=== PATIENT | female | born 1970 | race Caucasian/White ===

== ENCOUNTER → 2019-05-28 | Outpatient (CLI) | payer BC ==
--- NOTE | 2019-05-28 13:19 | MM ---
Reason for exam: screening (asymptomatic). Baseline mammogram. History: Took hormonal contraceptives beginning at age 15. Physical Findings: Nurse did not find any significant physical abnormalities on exam. MG Screening Mammo w CAD Bilateral CC and MLO view(s) were taken. The breast tissue is heterogeneously dense. This may lower the sensitivity of mammography. No significant findings. These results were verbally communicated with the patient and result sheet given to the patient on 05/28/19. ASSESSMENT: Benign, BI-RAD 2 RECOMMENDATION: Routine screening mammogram of both breasts in 1 year.
== END | disposition home or self-care (01) ==
LOC: RADMAMWWP 11:17
PROVIDERS: ATTEND Family Medicine
DX: Z12.31 Encounter for screening mammogram for malignant neoplasm of breast (principal)
CPT/HCPCS: 77067

== ENCOUNTER → 2019-06-04 | Outpatient (CLI) | payer BC ==
--- NOTE | 2019-06-05 04:09 | US ---
EXAMINATION TYPE: US pelvis complete transvag DATE OF EXAM: 06/04/2019 COMPARISON: NONE CLINICAL HISTORY: 48-year-old female N92.6 IRREG MENSTRUATION. Irregular cycles for 1 year. Tubal lig ation TECHNIQUE: Transabdominal sonographic images of the pelvis were acquired. Transvaginal sonographic images were medically necessary to better assess the following anatomy: endometrium and right ovary Date of LMP: 05/06/19 FINDINGS: EXAM MEASUREMENTS: Uterus: 10.2 x 5.6 x 6.6 cm Endometrial Stripe: 2.0 cm Right Ovary: unable to visualize Left Ovary: 3.2 x 1.9 x 2.1 cm 1. Uterus: Anteverted 2. Endometrium: thickened with 2 rounded hyperechoic areas noted = 1.1 x 1.0 x 1.2cm and 0.9 x 0.8 x 1.1cm along the fundal endometrium. 3. Right Ovary: Obscured by overlying bowel gas 4. Left Ovary: hypoechoic area = 1.2 x 1.0 x 1.1cm, dominant follicle = 1.3cm 5. Bilateral Adnexa: appears wnl 6. Posterior cul-de-sac: wnl IMPRESSION: 1. Excessive endometrial stripe thickening up to 2.0 cm. Rounded echogenic structures measuring 1.2 c m and 1.1 cm are seen along the fundal endometrium. Endometrial polyps and endometrial carcinoma are differential considerations. 2. A 1.2 cm hypoechoic round lesion in the left ovary, suspected hemorrhagic cyst. Follow-up in 6-8 w eeks to reassess.
== END | disposition home or self-care (01) ==
LOC: RADUSWWP 15:06
PROVIDERS: ATTEND Family Medicine
DX: C54.1 Malignant neoplasm of endometrium (principal); N84.0 Polyp of corpus uteri
CPT/HCPCS: 76830; 76856